=== PATIENT | male | born 1965 | race Native Hawaiian/Other Pacific Islander ===

== ENCOUNTER 2022-05-12 11:11 | Observation (INO) | payer OTHER ==
[~2022-05-12] VITALS: Ht 177.8 cm; Wt 107.0 kg
[2022-05-12 12:00] VITALS: BP 195/88; TEMP 98.1; Ht 177.8 cm; Wt 107.0 kg
[2022-05-12 13:07] LABS: PLATELET COUNT 255 K/uL (142-355)
[2022-05-12 13:24] LABS: PARTIAL THROMBOPLASTIN TIME 25.9 SECONDS (24.5-33.6); POTASSIUM 4.3 mmol/L (3.6-5.2)
[2022-05-12 16:00] VITALS: BP 121/59; TEMP 98.1
[2022-05-12 20:00] VITALS: BP 134/64; TEMP 98.2
[2022-05-13] VITALS: BP 127/76; TEMP 98.3
[2022-05-13 04:00] VITALS: BP 152/71; TEMP 98.2
[2022-05-13 08:00] VITALS: BP 148/73; TEMP 98.6
[2022-05-13 12:00] VITALS: BP 139/79; TEMP 98.1
[2022-05-13] MEDS ORDERED: PANTOPRAZOLE 40MG TA PO (16:35)
[2022-05-13] MEDS ORDERED: HYDR25TA57 PO (16:40)
[2022-05-13] MEDS ORDERED: ATEN50TA36 PO (16:41)
== END 2022-05-13 20:04 | disposition home or self-care (01) ==
LOC: MED/SURG 11:11
PROVIDERS: ADMIT Internal Medicine; ATTEND Internal Medicine
DX: R07.89 Other chest pain (principal); I10 Essential (primary) hypertension; K21.9 Gastro-esophageal reflux disease without esophagitis; Z72.0 Tobacco use; R06.02 Shortness of breath
CPT/HCPCS: 36415; 80053; 82550; 84484; 85027; 85610; 85730; 93005; 96372; 99220; G0378; G0379; J1650

== ENCOUNTER 2022-06-16 07:51 | Outpatient (CLI) | payer OTHER ==
[~2022-06-16 07:51] MED LIST: ATEN50TA36 PO; HYDR25TA57 PO; PANTOPRAZOLE 40MG TA PO
== END 2022-06-16 19:11 | disposition home or self-care (01) ==
LOC: CT 07:51
PROVIDERS: ATTEND Nurse Practitioner Family
DX: F17.210 Nicotine dependence, cigarettes, uncomplicated (principal)